=== PATIENT | male | born 1960 | race Caucasian/White ===

== ENCOUNTER 2021-11-06 06:47 | Inpatient (IN) ==
[~2021-11-06 06:47] MED LIST: ceFAZolin 1,000 MG VIAL ONE
[2021-11-06] MEDS: LACTATED RINGERS 1,000 ML IV SCH ×4 (07:40→20:54)
[2021-11-06] MEDS ORDERED: HEPARIN 5,000 UNIT/1 ML VIAL ONE (08:43)
[2021-11-06] MEDS ORDERED: fentaNYL 100 MCG/2 ML VIAL ONE (09:11)
[2021-11-06] MEDS ORDERED: DEXAMETHASONE 4 MG/1 ML VIAL ONE (09:11)
[2021-11-06] MEDS ORDERED: LIDOCAINE 2% 5 ML VIAL ONE (09:11)
[2021-11-06] MEDS ORDERED: SUCCINYLCHOLINE 200 MG/10 ML VIAL ONE (09:11)
[2021-11-06] MEDS ORDERED: ONDANSETRON 4 MG/2 ML VIAL ONE (09:11)
[2021-11-06] MEDS ORDERED: propofoL 200 MG/20 ML VIAL IV ONE (09:11)
[2021-11-06] MEDS ORDERED: ROCURONIUM 50 MG/5 ML VIAL IV ONE (09:11)
[2021-11-06] MEDS ORDERED: PHENYLEPHRINE 1 MG/10 ML SYRINGE IV ONE (11:17)
[2021-11-06] MEDS ORDERED: LABETALOL 20 MG/4 ML SYRINGE IV ONE (11:48)
[2021-11-06] MEDS ORDERED: LACTATED RINGERS 1,000 ML IV ONE (11:48)
[2021-11-06] MEDS ORDERED: SODIUM CHLORIDE 0.9% 1,000 ML IV ONE (12:10)
[2021-11-06] MEDS ORDERED: KETOROLAC 30 MG/1 ML VIAL ONE (12:10)
[2021-11-06] MEDS ORDERED: HEPARIN 10,000 UNIT/10 ML VIAL ONE (12:12)
[2021-11-06] MEDS ORDERED: HYDROmorphone 2 MG/1 ML VIAL ONE (12:24)
[2021-11-06] MEDS ORDERED: SEVOFLURANE 1 UNIT/15 MINUTE INH ONE (12:25)
[2021-11-06] MEDS ORDERED: TISSUE ADHESIVE 1 EACH APPLICATOR TOP ONE (12:28)
[2021-11-06] MEDS ORDERED: ONDANSETRON 4 MG/2 ML VIAL IV PRN ×2 (12:34→13:07)
[2021-11-06] MEDS ORDERED: HYDROmorphone 2 MG/1 ML VIAL IV PRN ×2 (12:34→13:07)
[2021-11-06] MEDS ORDERED: NON-FORMULARY MEDICATION (Sildenafil [Viagra] 50 mg Tablet) PO PRN (12:37)
[2021-11-06] MEDS ORDERED: MEPERIDINE 25 MG/1 ML VIAL IV PRN (13:07)
[2021-11-06 13:18] LABS: Hematocrit 38.8 VOL% (42.0-52.0); Hemoglobin 12.9 GM/DL (14.0-18.0)
[2021-11-06] MEDS ORDERED: SODIUM CHLORIDE 0.9% 1,000 ML IV SCH (13:30)
[2021-11-06] MEDS ORDERED: INFLUENZA VIRUS VACCINE 0.5 ML SYRINGE IM ONE (14:51)
[2021-11-06] MEDS ORDERED: diphenhydrAMINE CAP 25 MG CAPSULE PO PRN (15:38)
[2021-11-06] MEDS: KETOROLAC 10 MG TABLET PO SCH (17:15)
[2021-11-06] MEDS ORDERED: SIMVASTATIN 40 MG TABLET PO SCH (21:00)
[2021-11-07] MEDS: KETOROLAC 10 MG TABLET PO SCH ×3 (00:22→11:44)
[2021-11-07] MEDS: LACTATED RINGERS 1,000 ML IV SCH (04:35)
[2021-11-07 05:08] LABS: Basophils % 0.3 % (0.0-0.8); Eosinophils % 0.3 % (0.00-10.9); Hematocrit 33.2 VOL% (42.0-52.0); Immature Granulocytes % 0.5 %; Immature Granulocytes Absolute 0.04 #; Lymphocytes # 0.8 10*3/uL (1.4-4.0); Lymphocytes % 10.5 % (21.2-54.2); Mean Corpuscular HGB Conc 33.1 GM/DL (32-36); Mean Corpuscular Volume 85.6 FL (87-102); Mean Platelet Volume 11.2 FL (9.6-12.0); Monocytes % 7.1 % (1.7-12.7); Neutrophils % 81.3 % (38.7-73.9); Platelet Count 189 T/CUMM (130-400); Red Blood Count 3.88 MC/CUMM (3.8-5.5); Red Cell Distribution Width 12.5 % (9.3-17.3); White Blood Count 7.6 T/CUMM (4-12)
[2021-11-07 05:46] LABS: Calcium 8.3 MG/DL (8.5-10.1); Osmolality,Calculated 283.1 MOS/KG (273-304); Potassium 4.3 MMOL/L (3.5-5.1)
[2021-11-07] MEDS ORDERED: ASPIRIN CHEW 81 MG TABLET PO SCH (09:00)
[2021-11-07] MEDS ORDERED: CLOPIDOGREL 75 MG TABLET PO SCH (09:00)
[2021-11-07] MEDS ORDERED: lisinopriL 20 MG TABLET PO SCH (09:00)
[2021-11-07] MEDS ORDERED: PANTOPRAZOLE 40 MG TABLET PO SCH (09:00)
[2021-11-07] MEDS ORDERED: CHOLECALCIFEROL 400 UNIT TABLET PO SCH (09:00)
[2021-11-07] MEDS ORDERED: ASPIRIN EC 81 MG TABLET PO SCH (09:00)
[2021-11-07 16:16] VITALS: BP 133/60
== END 2021-11-07 16:11 | disposition home or self-care (01) | DRG 254 ==
LOC: N.OR 06:47 → N.SDSINP 06:50 → EDSTATUS 08:00 → N.SDSINP 12:34 → N.3E 13:46
PROVIDERS: ADMIT Surgery; ATTEND Surgery